=== PATIENT | male | born 1945 | race Caucasian/White ===

== ENCOUNTER 2018-06-05 11:32 | Day surgery (SDC) ==
--- NOTE | 2018-06-04 14:59 | EKG Report ---
Test Performed on : 06/04/2018 2:53:49 PM Test Reason : PAT Blood Pressure : / mmHG Vent. Rate : 050 BPM Atrial Rate : 050 BPM P-R Int : 170 ms QRS Dur : 086 ms QT Int : 408 ms P-R-T Axes : 071 082 052 degrees QTc Int : 371 ms Sinus bradycardia. Otherwise normal ECG No previous ECGs available Unconfirmed Result
[2018-06-04 15:08] LABS: BASO# 0.12 X1000 (0.0-0.2); BASO% 1.6 % (0.0-0.8); EOS# 0.74 X1000 (0.0-0.7); EOS% 9.6 % (0.0-10.0); HEMATOCRIT 38.8 % (42.0-52.0); HEMOGLOBIN 13.1 g/dL (14.0-18.0); IMM GRAN# 0.34 X1000 (0.0-0.04); IMM GRAN% 4.4 % (0.0-0.5); LYMPH# 1.46 X1000 (1.2-3.4); MCH 31.8 PG (27-31); MCHC 33.8 g/dL (33-37); MCV 94.2 FL (81-99); MONO# 1.02 X1000 (0.11-0.59); MONO% 13.2 % (1.7-9.3); MPV 9.6 FL (7.4-10.4); NEUT# 4.02 X1000 (1.4-6.5); NEUT% 52.2 % (42.2-75.2); PLT 379 X1000 (130-400); RBC 4.12 XMIL (4.7-6.1); RDW 13.7 % (11.5-14.5)
[2018-06-04 15:27] LABS: BANDS 2 % (0-1); EOS 11 % (1-10); LYMPHS 13 % (21-51); MONO 9 % (1-9); SEGS 65 % (42-75)
[2018-06-05] MEDS ORDERED: KEFZOL 2 GM/D5W 2 GM/50 ML IVPB ONE (12:05)
[2018-06-05] MEDS ORDERED: LR 1,000 ML ONE ×3 (12:05→15:24)
[2018-06-05] MEDS ORDERED: DIPRIVAN 1% ONE (13:16)
[2018-06-05] MEDS ORDERED: QUELICIN (DOSE) ONE (13:17)
[2018-06-05] MEDS ORDERED: XYLOCAINE-MPF 1% ONE (13:19)
[2018-06-05] MEDS ORDERED: SODIUM CHLORIDE 0.9% ONE (13:19)
[2018-06-05] MEDS ORDERED: SENSORCAINE-MPF 0.5%/EPI 1:200,000 ONE (13:19)
[2018-06-05] MEDS ORDERED: FENTANYL ONE (13:38)
[2018-06-05] MEDS ORDERED: XYLOCAINE-MPF 2% ONE (14:22)
[2018-06-05] MEDS ORDERED: ZOFRAN ONE (14:22)
[2018-06-05] MEDS ORDERED: DECADRON ONE (14:22)
[2018-06-05] MEDS ORDERED: NORCURON ONE (14:22)
[2018-06-05] MEDS ORDERED: NEOSTIGMINE ONE (14:44)
[2018-06-05] MEDS ORDERED: ROBINUL ONE (14:44)
[2018-06-05] MEDS: DILAUDID ONE ×2 (15:33→15:48)
--- NOTE | 2018-06-05 16:21 | Diag Imaging Result Doc PS360 ---
OPERATIVE CHOLANGIOGRAM - 06/05/2018 INDICATION: LAP ESME TECHNIQUE: The exam was performed by the patient's surgeon. One image was submitted. COMPARISON: None FINDINGS: Contrast was infused into the cystic duct. The common bile duct is dilated. There are some granular stones obstructing the distal most common bile duct. There is no visible contrast passage into the duodenum. IMPRESSION: Small granular stones obstructing the distal common bile duct. Electronically signed by Michael Parisi 06/05/2018 4:19 PM
[2018-06-05] MEDS ORDERED: SODIUM CHLORIDE 0.9% INJ SCH (16:28)
[2018-06-05] MEDS ORDERED: ZOFRAN IV PRN (16:28)
[2018-06-05] MEDS: LR 1,000 ML IV SCH (16:33)
[2018-06-05] MEDS: ZOSYN 3.375 GM in NS 50 ML IV SCH ×2 (17:10→21:30)
[2018-06-05] MEDS: PROTONIX IV SCH (17:11)
[2018-06-05] MEDS: MORPHINE IV PRN ×2 (19:20→23:08)
[2018-06-05] MEDS: LIPITOR PO SCH (21:29)
[2018-06-06] MEDS: ZOSYN 3.375 GM in NS 50 ML IV SCH ×5 (03:06→22:45)
[2018-06-06 06:49] LABS: BASO# 0.02 X1000 (0.0-0.2); BASO% 0.2 % (0.0-0.8); EOS# 0.01 X1000 (0.0-0.7); EOS% 0.1 % (0.0-10.0); HEMOGLOBIN 13.1 g/dL (14.0-18.0); IMM GRAN# 0.14 X1000 (0.0-0.04); IMM GRAN% 1.2 % (0.0-0.5); LYMPH# 0.69 X1000 (1.2-3.4); MCH 31.6 PG (27-31); MCHC 33.6 g/dL (33-37); MCV 94.2 FL (81-99); MONO# 0.89 X1000 (0.11-0.59); MONO% 7.7 % (1.7-9.3); NEUT# 9.76 X1000 (1.4-6.5); NEUT% 84.8 % (42.2-75.2); PLT 392 X1000 (130-400); RBC 4.14 XMIL (4.7-6.1); RDW 14.1 % (11.5-14.5); WBC 11.51 X1000 (4.8-10.8)
[2018-06-06 07:26] LABS: DIRECT BILIRUBIN 0.5 mg/dL (0.00-0.20); TOTAL BILIRUBIN 1.09 mg/dL (0.20-1.00); TOTAL PROTEIN 5.9 g/dL (6.3-8.3)
--- NOTE | 2018-06-06 10:04 | GASTROENTEROLOGY CONSULTATION ---
DATE: 06/06/2018 REASON FOR CONSULTATION: Choledocholithiasis. HISTORY OF PRESENT ILLNESS: Mr. Frankie Lane is a 72-year-old gentleman with past medical history of hypertension, hyperlipidemia who presented on 06/04/2018 with acute cholecystitis. The patient reports having sudden onset right upper quadrant epigastric pain that started while on a cruise in the [facility]. He reports having up to 9/10 pain associated nausea, vomiting, and fever. He was seen by the healthcare provider on the cruise ship who obtained lab work and he had an ultrasound done in [facility] with unknown findings. He reports developing some mild sclerae icterus during his trip and it was thought that he may have had a stomach bug. Upon return, he was seen by Dr. Quiros in the office on 06/03/2018 and had abnormal LFTs showing a mixed hepatocellular and cholestatic pattern at which point he was referred to Dr. Winter who admitted the patient for laparoscopic cholecystectomy. Intraoperatively, he had a cholangiogram that was done that showed small granular stones obstructing the distal common bile duct. This morning the patient reports significant improvement in his abdominal pain. No nausea, vomiting, or fevers. Currently NPO awaiting endoscopic retrograde cholangiopancreatography (ERCP). PAST MEDICAL HISTORY: Hypertension, hyperlipidemia, hypothyroidism. PAST SURGICAL HISTORY: Tonsillectomy, laparoscopic cholecystectomy on 06/05/2018. MEDICATIONS: The patient takes aspirin which has been held for the last 6 days, levothyroxine and atorvastatin, irbesartan. ALLERGIES: No known drug allergies. FAMILY HISTORY: No family history of GI malignancies or liver disease. PAST SOCIAL HISTORY: No smoking, alcohol or drug use. REVIEW OF SYSTEMS: As per HPI, otherwise 12 point review of systems is negative. PHYSICAL EXAMINATION: VITAL SIGNS: Temperature 98.4, heart rate 53, respiratory rate 14, blood pressure 138/65, O2 saturation is 98% on 2 L nasal cannula. General: The patient is awake, alert, oriented, no acute distress. Pleasant, conversant. HEENT: Sclerae anicteric, moist mucous membranes. Neck: Supple. No JVD. Cardiac: Regular rate and rhythm. No murmurs, rubs, or gallops. Pulmonary: Clear to auscultation bilaterally. No wheezing. Abdomen: Incision sites are clean, dry, and intact. He has a RAYMOND drain in the right upper quadrant draining serosanguineous fluid. Abdomen is nondistended. Hypoactive bowel sounds. Minimally tender to palpation diffusely. Extremities: No clubbing, cyanosis, or edema. Neurologic: Nonfocal. LABS: White count 11.5, hemoglobin 13.1, platelets of 392,000. LFTs: Total bilirubin of 1.0, AST of 149, ALT of 126, alkaline phosphatase 587, total protein 5.9, albumin 3.0, lipase 18. ASSESSMENT AND PLAN: Mr. Frankie Lane is a 72-year-old gentleman who presents with acute cholecystitis status post lap cholecystectomy on 06/05/2018 and found to have choledocholithiasis. The patient is hemodynamically stable without evidence of pancreatitis or cholangitis. LFTs show a cholestatic and hepatocellular pattern consistent with biliary obstruction. He is currently NPO with plans for ERCP with Dr. Arcos later today. He is currently on antibiotics with Zosyn, PPI 40 mg once daily, antiemetics and pain medications as needed. We are holding his aspirin and blood pressure medications. 1. Choledocholithiasis. Endoscopic retrograde cholangiopancreatography (ERCP) today per can Dr. Arcos. 2. Acute cholecystitis status post laparoscopic cholecystectomy. 3. Abnormal LFTs from above. We will follow with you. Please call with any questions or concerns. cc: Jose Winter MD
[2018-06-06] MEDS ORDERED: DIPRIVAN 1% ONE ×3 (11:57→12:32)
[2018-06-06] MEDS ORDERED: XYLOCAINE-MPF 2% ONE (11:58)
[2018-06-06] MEDS ORDERED: FENTANYL ONE (12:00)
--- NOTE | 2018-06-06 13:13 | Diag Imaging Result Doc PS360 ---
EXAM: ERCP-BILIARY AND PANCREATIC 06/06/2018 HISTORY: CBD stones TECHNIQUE: Three views COMMENT: The second image demonstrates a stone in the distal common bile duct. Stone is not visible on the last image at 1215. IMPRESSION: Retained stone in the distal common bile duct which is apparently basketed by Dr. Quiros during the procedure. Electronically signed by Chad Bowden 06/06/2018 1:11 PM
--- NOTE | 2018-06-06 13:13 | OPERATIVE NOTE ---
PROCEDURE DATE: 06/06/2018 PROCEDURES: 1. Endoscopic retrograde cholangiopancreatography with sphincterotomy. 2. Endoscopic retrograde cholangiopancreatography with stone removal. 3. Endoscopic retrograde cholangiopancreatography with stent placement. DESCRIPTION OF PROCEDURE: After informed consent and adequate intravenous sedation, the scope was introduced through the esophagus, stomach, and duodenum. There is a small juxta-ampullary diverticulum. Pancreatogram was normal. Cholangiogram revealed solitary large stone. At this point, a generous sphincterotomy was done, and the stone was extracted using a basket. The bile duct was lavaged. Cholangiogram was normal. At the end of the procedure, at this point, a 10- Belarusian, 5 cm stent was deployed. The scope was withdrawn. The patient tolerated the procedure without any immediate complications. I will see him in the office in 3 weeks, and we will remove the stent. PREOPERATIVE DIAGNOSIS: Rule out common bile duct stone. POSTOPERATIVE DIAGNOSIS: Large solitary common bile duct stone, removed. cc: MD Jose Colorado MD
--- NOTE | 2018-06-06 14:35 | GENERAL SURGERY PROGRESS NOTE ---
DATE: 06/06/2018 SUBJECTIVE: Feels well this morning. No nausea overnight. RAYMOND drain serosanguineous. Incisions are intact. He had a cholecystectomy yesterday that showed retained gallstones. Bilirubin is 1.09 this morning. ASSESSMENT AND PLAN: This is a 72-year-old gentleman with choledocholithiasis. He is status post cholecystectomy with cholangiogram. Dr. Arcos plans ERCP today. Further disposition pending findings at the time of surgery. cc: Jose Winter MD
[2018-06-06] MEDS: PERIDEX MT SCH ×2 (17:21→22:44)
[2018-06-06] MEDS: SYNTHROID PO SCH (17:22)
[2018-06-06] MEDS: PROTONIX IV SCH (17:22)
[2018-06-06] MEDS: NORCO-7.5 PO PRN (18:31)
[2018-06-06] MEDS: LR 1,000 ML IV SCH (18:36)
[2018-06-06] MEDS: LIPITOR PO SCH (22:44)
[2018-06-07] MEDS: ZOSYN 3.375 GM in NS 50 ML IV SCH ×2 (04:28→10:09)
[2018-06-07] MEDS: LR 1,000 ML IV SCH (04:29)
[2018-06-07 07:59] VITALS: BP 133/64
[2018-06-07] MEDS: PERIDEX MT SCH (10:09)
[2018-06-07] MEDS: SYNTHROID PO SCH (10:09)
[2018-06-07] MEDS: NORCO-7.5 PO PRN (11:11)
--- NOTE | 2018-06-07 15:33 | DISCHARGE SUMMARY ---
ADMISSION DATE: 06/05/2018 DISCHARGE DATE: 06/07/2018 ADMITTING DIAGNOSIS: Acute cholecystitis with cholelithiasis and choledocholithiasis. DISCHARGE DIAGNOSIS: Acute cholecystitis with cholelithiasis and choledocholithiasis. PRINCIPAL PROCEDURE: 1. Laparoscopic cholecystectomy with intraoperative cholangiogram per Dr. Winter. 2. Endoscopic retrograde cholangiopancreatography per Dr. Arcos. DISCHARGE DIET: Regular. DISCHARGE DISPOSITION: He will return to our outpatient office in a week for followup. He needs return to see Dr. Arcos in 3 weeks for stent removal. DISCHARGE MEDICATIONS: He is to return to his home medications. DISCHARGE DISABILITIES: Full. HOSPITAL COURSE: Mr. Frankie Lane is a 72-year-old white male, who had symptomatic gallstones during a recent cruise in [place]. He made it home and underwent a laparoscopic cholecystectomy with intraoperative cholangiogram by Dr. Regan Winter with followup ERCP for choledocholithiasis per Dr. Arcos. A drain was placed at the time of his laparoscopic cholecystectomy. On the day of discharge, he was up moving around. He was tolerating at least liquids. He had no bile in his RAYMOND drain and clinically he felt much better. It was felt safe to discharge him to his home under the care of his family with followup in our outpatient offices in a week. On the day of discharge, his heart rate was 71, blood pressure 133/64, O2 saturation 96%. He was afebrile. He is voiding without difficulty. All his trocar sites were healing well. cc: MD Jose Rodriguez MD
--- NOTE | 2018-06-13 04:19 | OPERATIVE NOTE ---
PROCEDURE DATE: 06/12/2018 PREOPERATIVE DIAGNOSIS: Choledocholithiasis. POSTOPERATIVE DIAGNOSIS: Choledocholithiasis. PROCEDURE PERFORMED: Laparoscopic cholecystectomy with cholangiogram. ESTIMATED BLOOD LOSS: Was 10 mL. SPECIMENS: Gallbladder. ANESTHESIA: General. INDICATIONS: This is a 72-year-old gentleman who became jaundiced on a cruise recently. At a hospital in [facility], he was found to have gallstones with a bilirubin of 5.9. He traveled back to the [facility], where his jaundice and bilirubin have improved. He continues to have right upper quadrant pain. OPERATIVE FINDINGS: 1. There was a chronically inflamed gallbladder with several stones. 2. Interpretation of intraoperative cholangiogram showed flow of contrast through a moderate length cystic duct into a dilated common bile duct with abrupt obstruction of flow distally, and no passage of contrast into the duodenum. The intrahepatic radicles appeared normal, consistent with retained distal common bile duct gallstones. OPERATIVE NOTE: Risks, benefits, alternatives discussed with patient and he consented to the procedure. He was seen preoperatively and surgical site was confirmed. He was taken to the operating room, placed in supine position. General anesthesia induced without complication. All bony prominences were padded. His abdomen prepped with chlorhexidine solution and draped in the usual fashion. After time-out, a supraumbilical midline incision was made and carried down to the fascia. The fascia was incised and was entered in open controlled fashion. A 12 mm Remi trocar was placed. We then placed 3 additional trocars after insufflating the abdomen to 15 mmHg, 1 in the epigastrium, 1 in the midclavicular line off the costal margin, 1 more laterally. The gallbladder was grasped and retracted cephalad. There was some omental adhesions we took down bluntly. The infundibulum was retracted down and to the right. We stripped down the peritoneum overlying the infundibulum of the gallbladder, identifying the junction with the cystic duct. We dissected this out widely and exposed it. There was a cystic artery that coursed through this as well that we encircled. We placed a clip on the gallbladder side, made a ductotomy, performed cholangiogram with above findings. After the above cholangiogram, we did try to flush the duct and administered glucagon with no improvement in the obstruction. After this, we triply clipped the cystic duct, doubly clipped the cystic artery, divided both and began removing the gallbladder from the gallbladder fossa. There was an opening made posterior wall. There was some spillage of bile but we collected all the stones that fell out and removed the gallbladder in its entirety, placed in an EndoCatch bag. We confirmed hemostasis in the gallbladder fossa. There was no bile leakage. Given the distal obstruction, I placed a Lamont drain in the gallbladder fossa, bringing it out through a lateral port site. Again inspected, there was no bleeding, there was no bile leakage. We removed the remaining trocars, deflated the abdomen, brought the gallbladder out through the umbilical incision. Closed the fascia interrupted 0 Vicryl sutures. Skin was closed with 4-0 Monocryl in subcuticular fashion. Dermabond was applied. We will admit the patient. I have consulted Dr. Arcos and Dr. Quiros for ERCP. cc: Jose Winter MD
== END 2018-06-07 11:45 | disposition home or self-care (01) ==
LOC: 4N 11:32 → OR 11:32
PROVIDERS: ATTEND Surgery
PROC: EN.ERCP (2018-06-06 12:07)
CPT/HCPCS: 74300; 74330; 80076; 83690; 85025; 88304; 93005; 93010; 94761; A9270; C1751; C1769; C9113; J0330; J0690; J1100; J1170; J2270; J2405; J2543; J3010; J7120; Q9966; Q9967; S0164